=== PATIENT | male | born 1940 | race Caucasian/White ===

== ENCOUNTER 2018-11-22 14:25 | Inpatient (IN) | payer OTHER ==
[~2018-11-22] VITALS: Ht 172.7 cm; Wt 75.4 kg
[2018-11-22 16:40] VITALS: BP 174/92
--- NOTE | 2018-11-22 18:59 | NUR ---
PATIENT DIRECT ADMISSION FROM [employer] THIS AFTERNOON. PATIENT ARRIVED TO UNIT AROUND 1615. NO COMPLAINT STATED. TOLERATING DIET. LOW FALL RISK. CALL LIGHT WITHIN REACH, FALL EDUCATION GIVEN. GRANDSON AT BEDSIDE.
[2018-11-22 19:23] VITALS: BP 143/71
[2018-11-22 23:58] VITALS: BP 137/73
[2018-11-23] VITALS (13 sets, daily range): BP systolic 128–187; BP diastolic 63–153
[2018-11-23 04:09] LABS: CHOLESTEROL 95 mg/dL (<200); HDL CHOLESTEROL 35 mg/dL (>40); LDL CHOLESTEROL 31 mg/dL (<100); MAGNESIUM 1.7 mg/dL (1.8-2.4); TC:HDL 2.7 Ratio (Not establshd); TRIGLYCERIDE 146 mg/dL (<150); VLDL 29 mg/dL (<40)
[2018-11-23 04:10] LABS: SERUM ASSESSMENT Clear
[2018-11-23 04:11] LABS: ANION GAP 9 mmol/L (7-16); BUN 18 mg/dL (7-18); CALCIUM 8.7 mg/dL (8.5-10.1); CHLORIDE 103 mmol/L (98-107); CO2 27 mmol/L (21-32); CREATININE 1.3 mg/dL (0.7-1.3); GLUCOSE 162 mg/dL (74-106); SODIUM 139 mmol/L (136-145); TROPONIN-I <0.06 ng/mL (<0.06)
[2018-11-23 04:30] LABS: ABSOLUTE NEUTROPHILS 5.6 thou/uL (1.4-8.2); BASOPHILS 0.7 % (0.0-2.0); HEMATOCRIT 32.4 % (42.0-52.0); HEMOGLOBIN 11.2 gm/dL (14.0-18.0); LYMPHOCYTES 11.9 % (24.0-44.0); MCH 31.4 pg (26.0-34.0); MCHC 34.6 g/dL (28.0-37.0); MCV 90.6 fL (80.0-100.0); MONOCYTES 8.2 % (1.0-8.0); PLATELET COUNT 161 thou/uL (150-400); POLYS 73.2 % (36.0-66.0); RBC 3.58 mil/uL (4.50-6.00); RDW 14.1 % (10.5-14.5); WBC 7.7 thou/uL (4.0-11.0)
--- NOTE | 2018-11-23 06:08 | NUR ---
ASSUME CARE 1900. PT/VITALS STABLE. DENIES ANY PAIN. UP X 1 ASSIST WITH CANE. ASSESSMETN CHARTED. ADEQUATE REST THROUGH NIGHT. NPO SINCVE MIDNIGHT FOR CARDIAC CATH TODAY. WILL CONTINUE TO MONITOR AND FOLLOW WITH POC
--- NOTE | 2018-11-23 08:38 | EKG ---
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 : 1940 Requested By: Payal Diaz Order Number: [id number] MD: Panda Moody Measurements Intervals [place] Rate: 87 P: 56 TN: 224 QRS: -22 QRSD: 143 T: -41 QT: 424 QTc: 510 Interpretive Statements Sinus rhythm Ventricular bigeminy Prolonged TN interval Right bundle branch block Inferior infarct, age indeterminate Compared to ECG 12/04/2005 07:30:55 Ventricular premature complex(es) now present First degree AV block now present Right bundle-branch block now present Diffuse ST segment elevation is no longer present Electronically Signed On 11-23-2018 8:38:23 DOCUMENT SCANNER by Panda Moody [email or web address] ��������������������������������������������� <ELECTRONICALLY SIGNED> ���������������������������������������� By: Panda Moody MD, [facility] ��������������������������������������������� 11/23/18 0838 1728 1728 Panda Moody MD, [facility] /EPI
--- NOTE | 2018-11-23 08:46 | EKG ---
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1940 Requested By: Ena Ahsley Order Number: [id number] MD: Panda Moody Measurements Intervals [place] Rate: 89 P: 49 RI: 209 QRS: -51 QRSD: 141 T: -29 QT: 414 QTc: 504 Interpretive Statements Sinus rhythm Ventricular tachycardia, unsustained Right bundle branch block Inferior infarct, age indeterminate Compared to ECG 12/04/2005 07:30:55 Ventricular tachycardia now present Electronically Signed On 11-23-2018 8:46:23 LEGAL ARBITRATOR by Panda Moody [email or web address] ��������������������������������������������� <ELECTRONICALLY SIGNED> ���������������������������������������� By: Panda Moody MD, [facility] ��������������������������������������������� 11/23/18 0846 3 3 Panda Moody MD, [facility] /EPI
[2018-11-23] MEDS ORDERED: LISINOPRIL40 MG PO (11:46)
[2018-11-23] MEDS ORDERED: CARVEDILOL12.5 MG PO (11:46)
[2018-11-23] MEDS ORDERED: LASIX 40 MG TAB40 M2 PO (11:46)
[2018-11-23] MEDS ORDERED: SIMVASTATIN40 MG PO (11:47)
[2018-11-23] MEDS ORDERED: METFORMIN HCL500 MG PO (11:47)
[2018-11-23] MEDS ORDERED: RANITIDINE 150150 M1 PO (11:47)
--- NOTE | 2018-11-23 14:49 | 2DMMODE ---
[facility] [employer] [place] [address] 2 D/M-MODE ECHOCARDIOGRAM Name: ZEENAT LÓPEZ AGRA Room #: 209-P ADM IN M.R.#: [id number] ������������� Admission: 11/22/18 ������������� Attend Phys: Roxana Monteiro Discharge: ��� ������������� ��� Date of : 42 Date of Service: 11/23/18 1449 �� Report #: [id number] �������� ��������������������������������������������[id number] THIS REPORT FOR: //name// APPROVED REPORT Study performed: 11/23/2018 13:36:45 EXAM: Comprehensive 2D, Doppler, and color-flow Echocardiogram Patient Location: Echo lab Room #: 209 Status: routine BSA: 1.85 HR: 71 bpm BP: 153/73 mmHg Other Information Study Quality: Technically DifficultTechnically Limited Indications COPD Diabetes CAD Elevated BP 2D Dimensions IVC: 21.00 mm Aortic Valve AoV Peak Antoine.: 0.83 m/s AO Peak Gr.: 2.75 mmHg Pulmonary Valve PV Peak Antoine.: 0.77 m/s PV Peak Gr.: 2.36 mmHg Tricuspid Valve TR Peak Antoine.: 1.99 m/s TR Peak Gr.: 15.89 mmHg PA Pressure: 31.00 mmHg Left Ventricle Left ventricle is at the upper limits of normal. There is normal left ventricular wall thickness. Left ventricular systolic function is moderately decreased. LVEF is 35%. This study is not technically sufficient to allow evaluation of the LV diastolic function. [facility] [address] [place] [address] 2 D/M-MODE ECHOCARDIOGRAM Name: ZEENAT LÓPEZ Room #: 209-P ADM IN M.R.#: [id number] ������������� Admission: 11/22/18 ������������� Attend Phys: Roxana Monteiro Discharge: ��� ������������� ��� Date of : 42 Date of Service: 11/23/18 1449 �� Report #: [id number] �������� ��������������������������������������������[id number] Right Ventricle The right ventricle is normal size. Right ventricle is hypokinetic. Atria Left atrium is dilated. Right atrium is dilated. Aortic Valve The aortic valve is not well visualized. Aortic valve is calcified. No aortic regurgitation is present. There is no aortic valvular stenosis. Mitral Valve The mitral valve is normal in structure. Mild mitral regurgitation. No evidence of mitral valve stenosis. Tricuspid Valve The tricuspid valve is normal in structure. There is mild tricuspid regurgitation. Estimated PAP 31 mmHg. There is mild pulmonary hypertension. Pulmonic Valve The pulmonary valve is normal in structure. There is no pulmonic valvular regurgitation. Great Vessels The aortic root is normal in size. The inferior vena cava is dilated with no inspiratory collapse. Pericardium There is no pericardial effusion. <Conclusion> Left ventricle is at the upper limits of normal. LVEF is 35%. Right ventricle is hypokinetic. Left atrium is dilated. Right atrium is dilated. The aortic valve is not well visualized. Aortic valve is calcified. The mitral valve is normal in structure. Mild mitral regurgitation. The tricuspid valve is normal in structure. There is mild tricuspid regurgitation. Estimated PAP 31 mmHg. There is mild pulmonary hypertension. [facility] [address] [place] [address] 2 D/M-MODE ECHOCARDIOGRAM Name: ZEENAT LÓPEZ AGRA Room #: 209-P ADM IN M.R.#: [id number] ������������� Admission: 11/22/18 ������������� Attend Phys: Roxana Monteiro Discharge: ��� ������������� ��� Date of : 42 Date of Service: 11/23/18 1449 �� Report #: [id number] �������� ��������������������������������������������[id number] The pulmonary valve is normal in structure. There is no pericardial effusion. ��������������������������������������������� <ELECTRONICALLY SIGNED> ���������������������������������������� By: Raj Castillo MD ��������������������������������������������� 11/23/18 1449 1449 1449 Raj Castillo MD /INF
--- NOTE | 2018-11-23 15:42 | NUR ---
met with patient who admits with unstable angina. Patient resides in [facility] in independent home with all needs on one level. He has not driven for past 3-[address] Patient uses a cane for ambulation. His PCP in [facility]. He has supportive family at bedside. He plans home once medically stable. May benefit from therapy for dc planning. casemgt following.
--- NOTE | 2018-11-23 18:32 | NUR ---
ASSUMED PATIENT CARE THIS AM. PATIENT OFF UNIT AROUND [id number]. PATIENT ALERT AND ORIENTED X4, ROOM AIR. RIGHT GROIN SITE, C/D/I. NO N/V, N/T OR PAIN STATED. PATIENT OFF BEDREST AROUND 1530. TOLERATING DIET. PATIENT VOIDING PER URINAL. NO COMPLAINTS STATED.
[2018-11-24] VITALS: BP 165/82
--- NOTE | 2018-11-24 00:20 | NUR ---
23:58>BP 161/102. MANUAL RECHECKED BP 180/80. DENIES PAIN. RIGHT GROIN SITE C/D/I, NO HEMATOMA. DENIES NUMBNESS, DENNIES TINGLING SENSATION. PULSES 2+/1+. RELAYED BP PERSONALLY TO CHAPINCITO LOPEZ, SHE ORDERED TO RESTART LISINOPRIL 40 MG PO DAILY AND TO START IN AM. SHE SAID TO SEE WHAT THE BP TREND AT 4AM. FF UP POC.
[2018-11-24 04:00] VITALS: BP 165/82
[2018-11-24 04:04] VITALS: BP 165/82
--- NOTE | 2018-11-24 08:43 | EKG ---
[place] [address] [facility] [place] [address] ELECTROCARDIOGRAM REPORT Name: RENE,ZEENATMiladis GLEASON Room #: 209-P ADM IN M.R.#: [id number] ������������������ Admission: 11/22/18 ������������������ Attend Phys: Roxana Beard Discharge: ������������������ Date of : 42 Report #: [id number] ����������������������������������������������������������������� [id number] THIS REPORT FOR: //name// 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1940 Requested By: Shelley West Order Number: [id number] MD: Panda Moody Measurements Intervals [place] Rate: 87 P: 49 MT: 208 QRS: -39 QRSD: 142 T: -29 QT: 413 QTc: 497 Interpretive Statements Sinus rhythm Ventricular bigeminy Right bundle branch block Inferior infarct, age indeterminate Compared to ECG 11/23/2018 06:24:54 No significant change was found Electronically Signed On 11-24-2018 8:43:28 DIRECTOR OF OFFICIATING by Panda Moody [email or web address] ��������������������������������������������� <ELECTRONICALLY SIGNED> ���������������������������������������� By: Panda Moody MD, [facility] ��������������������������������������������� 11/24/18 0843 6 6 Panda Moody MD, [facility] /EPI
[2018-11-24 09:02] LABS: HEMATOCRIT 32.3 % (42.0-52.0); HEMOGLOBIN 11.1 gm/dL (14.0-18.0); MCH 31.3 pg (26.0-34.0); MCHC 34.5 g/dL (28.0-37.0); MCV 90.7 fL (80.0-100.0); RBC 3.56 mil/uL (4.50-6.00); RDW 13.7 % (10.5-14.5); WBC 7.6 thou/uL (4.0-11.0)
[2018-11-24 09:19] LABS: CALCIUM 9.5 mg/dL (8.5-10.1); CREATININE 1.1 mg/dL (0.7-1.3); POTASSIUM 4.1 mmol/L (3.5-5.1); TROPONIN-I 0.09 ng/mL (<0.06)
[2018-11-24] MEDS ORDERED: ASPIRIN325 PO (10:44)
[2018-11-24] MEDS ORDERED: SPIRONOLACTONE25 M1 PO (10:44)
[2018-11-24] MEDS ORDERED: CARVEDILOL25 MG PO (10:44)
[2018-11-24] MEDS ORDERED: EFFIENT10 MG PO (10:44)
--- NOTE | 2018-11-24 13:22 | CATHLAB ---
[facility] [address] [place] [address] INVASIVE PROCEDURE REPORT Name: ZEENAT LÓPEZ Room #: 209-P ADM IN M.R.#: [id number] ������������� Admission: 11/22/18 ������������� Attend Phys: Roxana Monteiro Discharge: ��� ������������� ��� Date of : 42 Date of Service: 11/24/18 1322 �� Report #: [id number] �������� ��������������������������������������������[id number] THIS REPORT FOR: //name// APPROVED REPORT Study performed: 11/23/2018 09:39:50 Patient Details Patient Status: In-Patient Room #: 209 The patient is a 78 year-old male Event Personnel Baldomero Sandhu Site Damage Prevention Technician, Paula Strickland RN RN, Devonte Plascencia, Dionne Barber RTR, BAKERY DELIVERER Monitor, Melba Royal RT(R)() Monitor Procedures Performed Art Access - R femoral artery* Left Heart Cath Coronaries, Bypass Grafts [id number] LHCCORCABG JOSY Place w/wo Plasty Single LAD 121867 83568 Initial Mod Sed Same Phys/QHP Gr5y 172645 90278 Mod Sed Same Phys/QHP Ea 391290 Hemostasis w/ Mynx Indication Chest pain Procedure Narrative The Right Groin^ was infiltrated with 1% Lidocaine subcutaneous anesthesia. A PINNACLE 6FR Sheath #[id number] sheath was inserted into the RFA^. Coronary angiography was performed using coronary diagnostic catheters. The right coronary system was accessed and visualized with a JR4 catheter. The left coronary system was accessed and visualized with a JL4 catheter. The left ventricle was accessed and visualized with a pigtail catheter. Left ventriculogram was performed in 30 degree projection. Closure device was deployed with a 6 Fr MYNXGRIP 6/7F #[id number]. The patient tolerated the procedure well and there were no complications associated with the procedure. There was no hematoma. Intraoperative Conscious Sedation Sedation start time: 10:06 Case end Time: 11:41 Fentanyl 25 mcg Versed 2 mg Fluoro Time: 29.34 minutes Dose: DAP 11738.[address]Gy[address] [facility] [address] [place] [address] INVASIVE PROCEDURE REPORT Name: ZEENAT LÓPEZ [place] Room #: 209-P [facility] IN .R.#: [id number] ������������� Admission: 11/22/18 ������������� Attend Phys: Roxana Monteiro Discharge: ��� ������������� ��� Date of : 42 Date of Service: 11/24/18 1322 �� Report #: [id number] �������� ��������������������������������������������[id number] Contrast Type and Amount: Visipaque 205 ml Hemodynamics The aortic pressure is 144/59 mmHg with a mean of 89 mmHg. The left ventricular pressure is 166/13 mmHg with a mean of mmHg. The left ventricular end diastolic pressure is 25 mmHg. PCI Technique Lesion 2 Percutaneous Coronary Intervention was performed on the proximal left anterior descending artery segment. Percutaneous coronary intervention was performed on the proximal left anterior descending artery segment. A LAUNCHER 6FR EBU 4 #[id number] Guide Catheter was used to engage the ostium. A Luge Wire .014 x 182CM #[id number] Interventional Guidewire was used to cross the lesion. Balloon Dilation A Balloon catheter Sprinter OTW 2.5 x 12 #[id number] was inserted and inflated up to 16.00atm for 19seconds. Additional Inflation: 18.00atm for 15seconds. Additional Inflation: 18.00atm for 11seconds. 2.75mm x 20mm NC Euphora RX used before stent was deployed. Inflated up to 20 belkis for 25 seconds. Additional inflation up to 22 belkis for 43 seconds. Stent Deployment A drug-eluting stent RESOLUTE BLAKE OTW 2.75 X 18 #[id number] was inserted and inflated up to 18.00atm for 37seconds. Additional Inflation: belkis for seconds. Conclusion #1 successful PTCA stent of the proximal mid LAD long tandem lesions high-grade placement of a 2.75 x 18 resolute drug-eluting stent postdilated 3.0 mm. #2 a BURTON graft to this LAD has a subtotal anastomotic lesion thus indication for the above intervention. #3 left main moderately disease giving rise to LAD and circumflex. #4 circumflex OM moderately disease the first OM appears occluded there is to patent second and third vessels. 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 Small distribution we'll treat that medically #5 vein graft moderately disease T10 50-60% mid graft lesions filling a moderate size distal OM vessel that is mildly diseased #6 dominant right is occluded previously stented #7 a graft to the PDA is occluded proximally [facility] [address] [place] [address] INVASIVE PROCEDURE REPORT Name: ZEENAT LÓPEZ Room #: 209-P [facility] IN M.R.#: [id number] ������������� Admission: 11/22/18 ������������� Attend Phys: Roxana Monteiro Discharge: ��� ������������� ��� Date of : 42 Date of Service: 11/24/18 1322 �� Report #: [id number] �������� ��������������������������������������������[id number] #8 normal left ventricular size with mild global hypokinesis worse in the inferior wall EF 40-45% ��������������������������������������������� <ELECTRONICALLY SIGNED> ���������������������������������������� By: Baldomero Sandhu MD, FACC ��������������������������������������������� 11/24/181321 21 132 Baldomero Sandhu MD, FACC /INF
--- NOTE | 2018-11-24 14:11 | NUR ---
Pt dcing home today with outpt followup. No cm interventions indicated.
[2018-11-24 16:09] VITALS: BP 165/82
--- NOTE | 2018-11-24 17:52 | NUR ---
ASSUMED CARE OF PATIENT AT 0700. RT GROIN SITE CHECKED AT BEDSITE REPORT. SITE IS CLEAN, DRY AND INTACT WITHOUT ANY BLEEDING, EDEMA OR HEMATOMA. PATIENT DENIES ANY DISCOMFORT AT SITE. PATIENT ATE BOTH MEALS TODAY IN THE RECLINER. ASSESSMENTS CHARTED. PATIENT DISCHARGED PER CARDIOLOGY AND HOSPITALIST. DISCHARGE PAPERWORK SIGNED AND PRESCRIPTIONS GIVEN TO THE PATIENT. IV AND TELE REMOVED. PATIENT WAS TAKEN TO HIS GRANDSON'S PRIVATE VEHICLE VIA WHEELCHAIR. HE STATES THAT HE FEELS BETTER THAN HE DID ON ADMISSION.
== END 2018-11-24 17:30 | disposition home or self-care (01) | DRG 246 ==
LOC: 2N 14:25 → ENTRNSPT 11-24 17:16 → 2N 11-24 17:30
PROVIDERS: Nurse Practitioner; Nurse Practitioner Adult Health; ADMIT Hospitalist
PROC: B213YZZ Fluoroscopy of Multiple Coronary Artery Bypass Grafts using Other Contrast (ICD-10-PCS; principal; 2018-11-23)
PROC: 4A023N7 Measurement of Cardiac Sampling and Pressure, Left Heart, Percutaneous Approach (ICD-10-PCS; principal; 2018-11-23)
PROC: B215YZZ Fluoroscopy of Left Heart using Other Contrast (ICD-10-PCS; principal; 2018-11-23)
PROC: B211YZZ Fluoroscopy of Multiple Coronary Arteries using Other Contrast (ICD-10-PCS; principal; 2018-11-23)
PROC: B218YZZ Fluoroscopy of Left Internal Mammary Bypass Graft using Other Contrast (ICD-10-PCS; principal; 2018-11-23)
PROC: 027034Z Dilation of Coronary Artery, One Artery with Drug-eluting Intraluminal Device, Percutaneous Approach (ICD-10-PCS; principal; 2018-11-23)
DX: I25.110 Atherosclerotic heart disease of native coronary artery with unstable angina pectoris (principal); E43 Unspecified severe protein-calorie malnutrition; I10 Essential (primary) hypertension; E11.9 Type 2 diabetes mellitus without complications; E83.42 Hypomagnesemia; E87.6 Hypokalemia; Z66 Do not resuscitate; Z60.2 Problems related to living alone; G89.29 Other chronic pain; M54.9 Dorsalgia, unspecified; I25.5 Ischemic cardiomyopathy; E78.5 Hyperlipidemia, unspecified; Z95.1 Presence of aortocoronary bypass graft; Z95.5 Presence of coronary angioplasty implant and graft; Z88.6 Allergy status to analgesic agent; I25.2 Old myocardial infarction; Z82.49 Family history of ischemic heart disease and other diseases of the circulatory system; Z87.891 Personal history of nicotine dependence; Z79.899 Other long term (current) drug therapy
CPT/HCPCS: 10081